=== PATIENT | female | born 1945 | race Two or more races ===

== ENCOUNTER 2016-08-18 17:19 | Emergency (ER) | payer OTHER ==
[~2016-08-18] VITALS: Ht 165.1 cm; Wt 125.2 kg
[2016-08-18 19:19] VITALS: BP 178/127
--- NOTE | 2016-08-18 20:56 | NUR ---
TO ER BED 5
--- NOTE | 2016-08-18 21:00 | NUR ---
PATIENT PRESENTS TO ED WITH RT TOE NAIL OFF . PT DENIES N/V/D; SKIN IS PINK/WARM/DRY; AAOX4 WITH EVEN AND STEADY GAIT; LUNGS CLEAR BL; HR EVEN AND REGULAR; PT DENIES ANY FEVER, CP, SOB, OR COUGH AT THIS TIME; PATIENT STATES PAIN OF 0/10 AT THIS TIME; VSS; PATIENT POSITIONED FOR COMFORT; HOB ELEVATED; BEDRAILS UP X2; BED DOWN. ER MD MADE AWARE OF PT STATUS.
[2016-08-18] MEDS ORDERED: CLINDAMYCIN 150 MG CAP PO ONE (21:10)
--- NOTE | 2016-08-18 21:30 | NUR ---
X-Ray at bedside.
[2016-08-18] MEDS ORDERED: BACITRACIN OINT 500 UNITS/GM PKT TP ONE (22:05)
[2016-08-18] MEDS ORDERED: NEOMYCIN/POLYMYXIN/BACITRACIN 0.9 GM/1 PKT TP ONE (22:15)
--- NOTE | 2016-08-18 22:15 | NUR ---
WOUND CARE PROVIDED BY EMT, TOE WRAPPED AND FOOT CARE DONE. PT TOLERATED WELL.
[2016-08-18 22:48] VITALS: BP 158/71
--- NOTE | 2016-08-18 22:48 | NUR ---
Patient discharged with v/s stable. Written and verbal after care instructions given and explained. Patient alert, oriented and verbalized understanding of instructions. Ambulatory with steady gait. All questions addressed prior to discharge. ID band removed. Patient advised to follow up with PMD. Rx of CIPRO AND MOTRIN given. Patient educated on indication of medication including possible reaction and side effects. Opportunity to ask questions provided and answered.
== END 2016-08-18 22:48 | disposition home or self-care (01) ==
LOC: MED 17:19
DX: S99.821A Other specified injuries of right foot, initial encounter (principal); E11.9 Type 2 diabetes mellitus without complications; W55.03XA Scratched by cat, initial encounter; Y93.89 Activity, other specified; Y92.89 Other specified places as the place of occurrence of the external cause; Y99.8 Other external cause status
CPT/HCPCS: 73660; 99284; Q0092

== ENCOUNTER 2016-08-30 10:07 | Emergency (ER) | payer OTHER ==
[~2016-08-30] VITALS: Ht 165.1 cm; Wt 127.0 kg
[2016-08-30 10:19] VITALS: BP 152/110
--- NOTE | 2016-08-30 10:23 | NUR ---
Patient ambulated to bed 08.
--- NOTE | 2016-08-30 10:25 | NUR ---
PT PRESENTS TO ER W/C/O RIGHT GREAT TOE PAIN. PT STATES SHE BUMPED HER TOE AND THE TOENAIL PARTIALLY RIPPED OFF. HX DM; DENIES N/V/D; SKIN IS PINK/WARM/DRY; AAOX4 WITH EVEN AND STEADY GAIT; LUNGS CLEAR BL; HR EVEN AND REGULAR; PT DENIES ANY FEVER, CP, SOB, OR COUGH AT THIS TIME; PATIENT STATES RIGHT TOE THROBBING PAIN OF 3/10 AT THIS TIME; VSS; PATIENT POSITIONED FOR COMFORT; HOB ELEVATED; BEDRAILS UP X2; BED DOWN. ER MD MADE AWARE OF PT STATUS.
[2016-08-30] MEDS ORDERED: LIDOCAINE 1% ED 0 ML ONE (12:13)
[2016-08-30] MEDS ORDERED: NEOMYCIN/POLYMYXIN/BACITRACIN 0.9 GM/1 PKT TP ONE (12:22)
[2016-08-30] MEDS ORDERED: LIDOCAINE/EPI 1% 1:100000 20 ML VIAL INJ ONE (12:24)
--- NOTE | 2016-08-30 12:27 | NUR ---
DR TAPIA AT BEDSIDE
[2016-08-30 13:07] VITALS: BP 144/99
--- NOTE | 2016-08-30 13:07 | NUR ---
Patient discharged with v/s stable. Written and verbal after care instructions given and explained. Patient verbalized understanding. Ambulatory with steady gait. All questions addressed prior to discharge. Advised to follow up with PMD.
== END 2016-08-30 13:07 | disposition home or self-care (01) ==
LOC: MED 10:07
DX: S91.201A Unspecified open wound of right great toe with damage to nail, initial encounter (principal); E11.9 Type 2 diabetes mellitus without complications; I10 Essential (primary) hypertension; E78.5 Hyperlipidemia, unspecified; X58.XXXA Exposure to other specified factors, initial encounter; Y93.89 Activity, other specified; Y92.89 Other specified places as the place of occurrence of the external cause; Y99.8 Other external cause status
CPT/HCPCS: 11730; 82948; 99284; J2001

== ENCOUNTER 2019-06-14 15:54 | Emergency (ER) | payer OTHER ==
[~2019-06-14] VITALS: Ht 165.1 cm; Wt 117.9 kg
[2019-06-14 16:15] VITALS: BP 105/50
[2019-06-14] MEDS ORDERED: AMOXIL/CLAVULANATE 875/125 MG 1 TAB PO ONE (16:20)
--- NOTE | 2019-06-14 16:30 | NUR ---
73/F FROM EMS FOR CAT SCRACTHES TO RT FOREARM. BLEEDING CONTROLLED. PT IS UNAWARE OF LAS TDAP. MULTIPLE SCRATCHES NOTED TO RT FOREARM. IN BED FOR MSE.
[2019-06-14] MEDS ORDERED: AZITHROMYCIN 250 MG TAB PO ONE (16:50)
--- NOTE | 2019-06-14 17:00 | NUR ---
DERMABOND AND STERISTRIPS APPLIED TO RT FORARM BY DR LIMON. PT TOLERATED WELL.
[2019-06-14] MEDS ORDERED: BACITRACIN OINT 500 UNITS/GM PKT TP ONE (17:06)
[2019-06-14 17:27] VITALS: BP 105/50
== END 2019-06-14 17:27 | disposition home or self-care (01) ==
LOC: MED 15:54
DX: S61.412A Laceration without foreign body of left hand, initial encounter (principal); S61.411A Laceration without foreign body of right hand, initial encounter; E11.9 Type 2 diabetes mellitus without complications; W55.01XA Bitten by cat, initial encounter; Y93.89 Activity, other specified; Y92.89 Other specified places as the place of occurrence of the external cause; Y99.8 Other external cause status
CPT/HCPCS: 90471; 90715; 99283

== ENCOUNTER 2021-07-11 16:35 | Inpatient (IN) | payer MEDICARE, MEDICAID ==
[~2021-07-11] VITALS: Ht 167.6 cm; Wt 31.8 kg
--- NOTE | 2021-07-11 16:38 | NUR ---
BIBA BLS TO ER BED 5
--- NOTE | 2021-07-11 17:05 | NUR ---
BLOOD SENT TO LAB, NAGA SINCLAIR SENT TO LAB
[2021-07-11 17:06] VITALS: BP 110/66
[2021-07-11 17:10] LABS: BASOPHILS # (AUTO) 0.1 K/uL (0.00-0.22); BASOPHILS % (AUTO) 0.8 % (0.0-2.0); EOSINOPHILS # (AUTO) 0.1 K/uL (0-0.4); EOSINOPHILS % (AUTO) 0.7 % (0.0-4.0); HEMATOCRIT 36.8 % (36-48); HEMOGLOBIN 12.1 g/dL (12.0-16.0); LYMPHOCYTES % (AUTO) 33.5 % (20.5-51.1); MEAN CORPUSCULAR HEMOGLOBIN 27 pg (27-31); MEAN CORPUSCULAR HGB CONC 33 g/dL (33-37); MEAN CORPUSCULAR VOLUME 81.8 fL (80-94); MONOCYTES # (AUTO) 0.5 K/uL (0.8-1.0); MONOCYTES % (AUTO) 5.9 % (1.7-9.3); NEUTROPHILS # (AUTO) 5.3 K/uL (1.8-7.7); NEUTROPHILS % (AUTO) 59.1 % (42.2-75.2); PLATELET COUNT (AUTO) 407 K/uL (140-450); RED CELL DISTRIBUTION WIDTH 16.5 % (11.6-13.7)
--- NOTE | 2021-07-11 17:12 | NUR ---
XR AT PT BEDSIDE
--- NOTE | 2021-07-11 17:15 | NUR ---
75 Y/O FEMALE BIBA C/O VOMITING FOR APPROX 1 YR. PT STATES SHE VOMITED APPROX. 6 TIMES TODAY. PT DENIES PAIN. PT DENIES AGGRAVATING OR ALLEVIATING FACTORS. ABDOMEN IN NON TENDER TO TOUCH. DENIES DYSURIA, DIARRHEA, CONSTIPATION, NO FEVER OR CHILLS. PT DENIES TAKING MEDICATION PRIOR TO ARRIVAL. BED LOCKED IN LOWEST POSITION. SIDE RAILS X1. PMH: AFIB, DM,HDL, HTN, NSTEMI, UTI NKA
[2021-07-11] MEDS ORDERED: ONDANSETRON 4 MG/2 ML VIAL IVP ONE (17:40)
[2021-07-11] MEDS ORDERED: NACL 0.9% 1,000 ML IV ONE (17:40)
[2021-07-11 17:44] LABS: ALBUMIN 3.6 g/dL (3.4-5.0); ANION GAP 14.4 (8-16); ASPARTATE AMINOTRANSFERASE 15 U/L (15-37); CARBON DIOXIDE 33.8 mmol/L (21-32); CHLORIDE 98 mmol/L (98-107); CREATININE 2.5 mg/dL (0.6-1.3); GLUCOSE 149 mg/dL (74-106); POTASSIUM 4.2 mmol/L (3.5-5.1); SODIUM SERUM 142 mmol/L (136-145); TOTAL BILIRUBIN 0.5 mg/dL (0.0-1.0); UREA NITROGEN, BLOOD 40 mg/dL (7-18)
--- NOTE | 2021-07-11 18:12 | NUR ---
PT TAKEN TO CT VIA MAE
[2021-07-11 19:02] LABS: BILIRUBIN,URINE NEGATIVE (NEGATIVE); BLOOD, URINE TRACE-L (NEGATIVE); COLOR,URINE YELLOW (YELLOW); LEUKOCYTE ESTERASE ,URINE NEGATIVE (NEGATIVE); NITRITE, URINE NEGATIVE (NEGATIVE); PH,URINE 8.5 (5.0-9.0); UGLUCOSE NEGATIVE (NEGATIVE)
--- NOTE | 2021-07-11 19:02 | NUR ---
Patient appears to be resting comfortably in bed. Vital Signs within normal limits. Respirations even and unlabored.
[2021-07-11 19:04] LABS: APPEARANCE,URINE CLEAR (CLEAR)
[2021-07-11 19:20] LABS: WBC,URINE 20-60 /HPF (0-5)
--- NOTE | 2021-07-11 19:23 | NUR ---
Pt report given to EARL ZAVALA. Transfer of care at this time.
[2021-07-11] MEDS ORDERED: ONDANSETRON 4 MG/2 ML VIAL IVP PRN (19:40)
--- NOTE | 2021-07-11 19:43 | NUR ---
PT STATED SHE WAS THIRSTY. GAVE PT ICE CHIPS TO TEST FIRST. IF NO VOMITING WILL TRY WATER. PT AGREED TO PLAN, DR. LEE NOTIFIED
[2021-07-11] MEDS ORDERED: [UNRECOGNIZED DRUG - CODE] PO (20:29)
[2021-07-11] MEDS ORDERED: ZOF (20:29)
[2021-07-11] MEDS ORDERED: HYDR-3233 PO (20:29)
[2021-07-11] MEDS ORDERED: ATOR40TA PO (20:29)
[2021-07-11] MEDS ORDERED: BISA-213 RC (20:29)
[2021-07-11] MEDS ORDERED: MULT-2246 PO (20:29)
[2021-07-11] MEDS ORDERED: INSU100S22 SUBQ (20:29)
[2021-07-11] MEDS ORDERED: METO25TE2 PO (20:29)
[2021-07-11] MEDS ORDERED: ZOFRAN PO (20:29)
[2021-07-11] MEDS ORDERED: LISI40TA12 PO (20:29)
[2021-07-11] MEDS ORDERED: ASPI-1822 PO (20:29)
[2021-07-11] MEDS ORDERED: MAGN400S60 PO (20:29)
[2021-07-11] MEDS ORDERED: FLEPED RC (20:29)
[2021-07-11] MEDS ORDERED: MECL-231 PO (20:29)
--- NOTE | 2021-07-11 20:42 | NUR ---
Patient will be admitted to care of . Admited to TELE. Will go to room. Belongings list completed. Report to
[2021-07-11 20:58] VITALS: BP 135/71
--- NOTE | 2021-07-11 21:05 | NUR ---
This is an admission note for a 75 year old female patient under the care of Doctor Reynaldo. Pola complaint of intractable vomiting hours after breakfast when patient takes a sip of water to begin lunch. Patient says her entire breakfast comes back up and she would like to know why. Given as needed items (vomit bag). Patient request for food at this time. Manolo Preciado RN
[2021-07-11] MEDS ORDERED: MORPHINE SULFATE 2 MG/ML SYR IVP PRN (23:50)
[2021-07-11] MEDS ORDERED: HYDROcodone/APAP 5/325 MG 1 TAB TAB PO PRN (23:50)
[2021-07-11] MEDS ORDERED: DOCUSATE SODIUM 100 MG GELCAP PO PRN (23:50)
[2021-07-11] MEDS ORDERED: MAG SULF 2000 MG/WATER PREMIX 50 ML IV PRN (23:50)
[2021-07-11] MEDS ORDERED: ACETAMINOPHEN 325 MG TAB PO PRN (23:50)
[2021-07-11] MEDS ORDERED: ONDANSETRON 4 MG/2 ML VIAL IM/IVP PRN (23:50)
[2021-07-11] MEDS ORDERED: POTASSIUM CHLORIDE 10 MEQ TABER PO PRN (23:50)
[2021-07-11] MEDS ORDERED: LORazepam 2 MG/ML VIAL IM/IVP PRN (23:50)
[2021-07-11] MEDS ORDERED: ZOLPIDEM 5 MG TAB PO PRN (23:50)
[2021-07-11] MEDS ORDERED: GINGER ROOT 500 MG PO SCH (23:55)
[2021-07-11] MEDS ORDERED: MAGNESIUM HYDROXIDE 2400 MG/30 ML UDC PO PRN (23:55)
[2021-07-11] MEDS ORDERED: hydrALAZINE 10 MG TAB PO SCH (23:55)
[2021-07-11] MEDS ORDERED: MECLIZINE 25 MG TAB PO PRN (23:55)
[2021-07-11] MEDS ORDERED: SODIUM PHOSPHATE PEDIATRIC 67.5 ML ENEM RC SCH (23:55)
[2021-07-11] MEDS ORDERED: bisacodyL 10 MG SUPP RC PRN (23:55)
[2021-07-12] MEDS ORDERED: DEXTROSE 50% 50 ML SYR IVP PRN
[2021-07-12] MEDS ORDERED: INSULIN LISPRO SLIDING SCALE 100 UNITS/ML VIAL SUBQ PRN
[2021-07-12 00:49] LABS: PROTHROMBIN TIME 11.3 secs (10.8-13.4)
[2021-07-12 01:00] VITALS: BP 132/63
[2021-07-12 04:00] VITALS: BP 115/65
[2021-07-12] MEDS: NACL 0.9% 1,000 ML IV SCH ×2 (05:22→16:27)
[2021-07-12] MEDS: BLOOD GLUCOSE MONITORING 1 DEV DEV FS SCH ×4 (06:38→21:24)
[2021-07-12 06:48] LABS: THYROID STIMULATING HORMONE 0.03 uIU/mL (0.34-3.74)
--- NOTE | 2021-07-12 06:59 | NUR ---
Handoff with MELVIN Howell. Manolo Preciado RN
--- NOTE | 2021-07-12 07:30 | NUR ---
RECEIVED REPORTFROM SEAMAN. AOX4, ABLE TO MAKE NEEDS KNOWN. RESPIRATIONS EVEN AND UNLABORED. ON ROOM AIR AND NO DISTRESS NOTED. SKIN IS WARM, DRY, AND INTACT. IV SITE ON RAC 20G RUNNING NS AT 60. INTACT AND PATENT. ABD IS SOFT, FLAT, AND NON-DISTENDED. BOWEL SOUNDS ACTIVE IN ALL QUADRANTS. PT DENIES PAIN AT THE MOMENT. PT AMBULATES WITH ASSISTANCE. PLAN OF CARE DISCUSSED. SAFETY PRECAUTIONS IN PLACE. CALL LIGHT WITHIN REACH. WILL CONTINUE TO MONITOR.
[2021-07-12 08:00] VITALS: BP 145/68
[2021-07-12 08:13] LABS: BASOPHILS # (AUTO) 0.1 K/uL (0.00-0.22); BASOPHILS % (AUTO) 1.5 % (0.0-2.0); EOSINOPHILS # (AUTO) 0.3 K/uL (0-0.4); EOSINOPHILS % (AUTO) 3.5 % (0.0-4.0); HEMATOCRIT 30.8 % (36-48); HEMOGLOBIN 10.2 g/dL (12.0-16.0); LYMPHOCYTES # (AUTO) 3.6 K/uL (2.5-16.5); LYMPHOCYTES % (AUTO) 43.1 % (20.5-51.1); MEAN CORPUSCULAR HEMOGLOBIN 28 pg (27-31); MEAN CORPUSCULAR HGB CONC 33 g/dL (33-37); MEAN CORPUSCULAR VOLUME 83.7 fL (80-94); MONOCYTES # (AUTO) 0.6 K/uL (0.8-1.0); MONOCYTES % (AUTO) 6.9 % (1.7-9.3); NEUTROPHILS # (AUTO) 3.7 K/uL (1.8-7.7); PLATELET COUNT (AUTO) 307 K/uL (140-450); RED BLOOD CELL COUNT(AUTO) 3.68 MIL/uL (4.20-5.40); RED CELL DISTRIBUTION WIDTH 16.3 % (11.6-13.7); WHITE BLOOD COUNT (AUTO) 8.3 K/uL (4.8-10.8)
[2021-07-12 08:15] LABS: ANION GAP 8.7 (8-16); CARBON DIOXIDE 34.4 mmol/L (21-32); CHLORIDE 103 mmol/L (98-107); CREATININE 2.1 mg/dL (0.6-1.3); GLUCOSE 154 mg/dL (74-106); POTASSIUM 4.1 mmol/L (3.5-5.1); SODIUM SERUM 142 mmol/L (136-145); UREA NITROGEN, BLOOD 37 mg/dL (7-18)
--- NOTE | 2021-07-12 08:24 | NUR ---
PATIENT HAS BEEN SCREENED AND CATEGORIZED HIGH NUTRITION RISK. PATIENT WILL BE SEEN WITHIN 1-2 DAYS OF ADMISSION. REFERRAL RECEIVED FOR NAUSEA AND VOMITING OVER THREE DAYS [address]
[2021-07-12] MEDS ORDERED: hydrALAZINE 10 MG TAB PO PRN (08:45)
[2021-07-12] MEDS: ASPIRIN 81 MG TAB.CHEW PO SCH (08:52)
[2021-07-12] MEDS: MULTIVITAMIN/MINERALS 1 TAB PO SCH (08:52)
[2021-07-12] MEDS: METOPROLOL SUCCINATE 50 MG TABER PO SCH (08:52)
[2021-07-12] MEDS: lisinopriL 20 MG TAB PO SCH (08:53)
[2021-07-12 09:05] LABS: CHOL/HDL RATIO 2.7 (1-4.5); MAGNESIUM 2.2 mg/dL (1.8-2.4); PHOSPHORUS 5.3 mg/dL (2.5-4.9)
[2021-07-12 12:00] VITALS: BP 132/68
[2021-07-12] MEDS: ERYTHROMYCIN 250 MG in NACL 0.9% 100 ML IV SCH ×2 (12:31→18:28)
[2021-07-12 16:00] VITALS: BP 138/59
--- NOTE | 2021-07-12 16:13 | NUR ---
07/12/21 RD INITIAL ASSESSMENT COMPLETED PLEASE REFER TO NUTRITION ASSESSMENT UNDER CARE ACTIVITY FOR ESTIMATED NUTRITIONAL NEEDS. 1. RECOMMEND CCHO 60 GM + CARDIAC DIET 2. MONITOR PO INTAKE AND GI SYMPTOMS. -IF PT PO INTAKE CONTINUES TO BE < 75 %, RECOMMEND ORAL SUPPLEMENTS PER RD PROTOCOL 3. RD TO FOLLOW-UP 2-3 DAYS, HIGH RISK REVIEWED BY PABLO GRE[address]
[2021-07-12 20:00] VITALS: BP 109/70
[2021-07-12] MEDS ORDERED: INSULIN LANTUS 100 UNITS/ML 10 ML VIAL SUBQ SCH (21:00)
[2021-07-12] MEDS ORDERED: ATORVASTATIN 20 MG TAB PO SCH (21:00)
[2021-07-12] MEDS: PANTOPRAZOLE 40 MG INJ VIAL IVP SCH (21:26)
[2021-07-13] VITALS: BP 126/54
[2021-07-13] MEDS: ERYTHROMYCIN 250 MG in NACL 0.9% 100 ML IV SCH ×3 (00:07→12:00)
[2021-07-13] MEDS: DEXT 5% / NACL 0.9% 1,000 ML IV SCH ×2 (01:00→09:06)
[2021-07-13 04:00] VITALS: BP 154/70
[2021-07-13] MEDS: BLOOD GLUCOSE MONITORING 1 DEV DEV FS SCH ×2 (06:37→10:48)
[2021-07-13] MEDS ORDERED: MIDAZOLAM 2 MG/2 ML VIAL ONE (07:14)
[2021-07-13] MEDS ORDERED: fentaNYL citrate 0.05 MG/ML VIAL ONE (07:14)
--- NOTE | 2021-07-13 07:27 | NUR ---
RECEIVED REPORT FROM [facility]. PT A/O X4. NO SOB OR RESPIRATORY DISTRESS. ON RA. DENIES PAIN. DENIES VOMITING THIS AM. LAC #20 WITH D5NS @ 110 ML/HR. CONSENT FOR EGD WILL BE SIGNED BY PREOP RN. PT OFF TO EGD. NEEDS ALL MET AT THIS TIME. SAFETY MEASURES IN PLACE. WILL CONTINUE TO MONITOR CLOSELY.
[2021-07-13] MEDS ORDERED: fentaNYL citrate 0.05 MG/ML VIAL IVP ONE (07:55)
[2021-07-13] MEDS ORDERED: MIDAZOLAM 2 MG/2 ML VIAL IVP ONE (07:55)
[2021-07-13 08:00] VITALS: BP 123/70
--- NOTE | 2021-07-13 08:05 | NUR ---
PT BACK FROM EGD. Addendum: 07/13/21 at 0806 by Agency Nurse Bruce, MELVIN CHARLES PT BACK FROM EGD. REPORT GIVEN BY MELVIN BTAISTA. PT IN NO DISTRESS. NO SOB. ON RA. WILL MONITOR CLOSELY.
[2021-07-13 08:14] LABS: PHOSPHORUS 4.3 mg/dL (2.5-4.9)
[2021-07-13 09:00] LABS: ANION GAP 12.3 (8-16); CARBON DIOXIDE 24.8 mmol/L (21-32); CHLORIDE 107 mmol/L (98-107); CREATININE 1.7 mg/dL (0.6-1.3); GLUCOSE 75 mg/dL (74-106); POTASSIUM 4.1 mmol/L (3.5-5.1); SODIUM SERUM 140 mmol/L (136-145); UREA NITROGEN, BLOOD 34 mg/dL (7-18)
[2021-07-13] MEDS: PANTOPRAZOLE 40 MG INJ VIAL IVP SCH (09:03)
[2021-07-13] MEDS: METOPROLOL SUCCINATE 50 MG TABER PO SCH (09:04)
[2021-07-13] MEDS: ASPIRIN 81 MG TAB.CHEW PO SCH (09:04)
[2021-07-13] MEDS: lisinopriL 20 MG TAB PO SCH (09:05)
[2021-07-13] MEDS: MULTIVITAMIN/MINERALS 1 TAB PO SCH (09:05)
[2021-07-13 09:08] LABS: BASOPHILS # (AUTO) 0.1 K/uL (0.00-0.22); EOSINOPHILS # (AUTO) 0.4 K/uL (0-0.4); EOSINOPHILS % (AUTO) 4.8 % (0.0-4.0); HEMATOCRIT 32.1 % (36-48); HEMOGLOBIN 10.2 g/dL (12.0-16.0); LYMPHOCYTES # (AUTO) 3.5 K/uL (2.5-16.5); LYMPHOCYTES % (AUTO) 39.9 % (20.5-51.1); MEAN CORPUSCULAR HEMOGLOBIN 27 pg (27-31); MEAN CORPUSCULAR HGB CONC 32 g/dL (33-37); MONOCYTES # (AUTO) 0.7 K/uL (0.8-1.0); MONOCYTES % (AUTO) 7.7 % (1.7-9.3); NEUTROPHILS # (AUTO) 4.1 K/uL (1.8-7.7); NEUTROPHILS % (AUTO) 46.6 % (42.2-75.2); PLATELET COUNT (AUTO) 278 K/uL (140-450); RED BLOOD CELL COUNT(AUTO) 3.78 MIL/uL (4.20-5.40); RED CELL DISTRIBUTION WIDTH 15.8 % (11.6-13.7); WHITE BLOOD COUNT (AUTO) 8.7 K/uL (4.8-10.8)
--- NOTE | 2021-07-13 10:49 | NUR ---
PT WITH BLOOD GLUCOSE VIA FINGERSTICK WITH 65. ORANGE JUICE AND VANILLA PUDDING PROVIDED FOR PT. PT A/O X3. NO S/S OF HYPOGLYCEMIA. PT STATES SHE DOES NOT GET ALONG WITH PT IN BED 112A AND STATES, "SHE WANTS ME OUT OF HERE". CONTACTED CHARGE NURSE REGARDING ROOM CHANGE. NEEDS ALL MET AT THIS TIME. SAFETY PRECAUTIONS IN PLACE. WILL MONITOR CLOSELY.
[2021-07-13] MEDS ORDERED: BISM262S40 PO (11:37)
[2021-07-13] MEDS ORDERED: OMEP40EC23 PO (11:37)
[2021-07-13 12:00] VITALS: BP 115/60
--- NOTE | 2021-07-13 12:00 | NUR ---
PT STATES SHE DOES NOT WANT ROOM CHANGE ANYMORE. CONTACTED CHARGE NURSE.
--- NOTE | 2021-07-13 13:00 | NUR ---
PT TOLERATING FLUIDS AND FOOD INTAKE. DENIES NAUSEA/VOMITING. PT IN NO DISTRESS. VSS. NEEDS ALL MET AT THIS TIME. SAFETY MEASURES IN PLACE. HOURLY ROUNDS CONDUCTED.
--- NOTE | 2021-07-13 13:24 | NUR ---
DC PLANNING: PATIENT ACCEPTED BACK TO [facility], ROOM 19A, DR KEYS TO FOLLOW. NUMBER TO CALL REPORT IS [phone]. TRANSPORT TO BE PROVIDED BY [employer], , ETA 1500. BOO SPOKE WITH THE PATIENT AT BEDSIDE, SHE HAS BEEN AT [facility] FOR 10 MONTHS. SHE DOES AMBULATE WITH P.T. USING A FWW AND THE REST OF THE TIMES WHEELS HERSELF AROUND IN A WC. SHE IS INDEPENDENT IN ADL'S AND WANTS TO RETURN TO THE SNF. STATES THAT HER NIECE MELINDA SALDANA IS HER PRIMARY CONTACT BUT SHE LIVES IN [facility] AND THE PATIENT CAN'T REMEMBER HER NUMBER. SECONDARY CONTACT IS HER FRIEND SLIME, PHONE NUMBER [phone]. ETA ENDORSED TO THE CHARGE NURSE BOO BAXTER WILL FOLLOW.
[2021-07-13 14:17] VITALS: BP 115/60
--- NOTE | 2021-07-13 15:14 | NUR ---
DISCHARGE INSTRUCTIONS GIVEN. PT VERBALIZED UNDERSTANDING. PT IV DISCONTINUED. CATHETER INTACT. NO ACTIVE BLEEDING. REPORT GIVEN TO EMT. PT TRANSPORTED VIA GURNEY BACK TO [facility].
[2021-07-13 18:21] LABS: T4 (THYROXINE) 12.4 ug/dL (4.5 - 12.0)
== END 2021-07-13 15:20 | DRG 380 ==
LOC: MED 16:35 → MTU 19:47
PROC: 0DB78ZX Excision of Stomach, Pylorus, Via Natural or Artificial Opening Endoscopic, Diagnostic (ICD-10-PCS; 2021-07-13)
PROC: 0DB58ZX Excision of Esophagus, Via Natural or Artificial Opening Endoscopic, Diagnostic (ICD-10-PCS; 2021-07-13)
PROC: 0DB98ZX Excision of Duodenum, Via Natural or Artificial Opening Endoscopic, Diagnostic (ICD-10-PCS; principal; 2021-07-13 07:30)
DX: K22.70 Barrett's esophagus without dysplasia (principal); N17.0 Acute kidney failure with tubular necrosis; N13.6 Pyonephrosis; K92.9 Disease of digestive system, unspecified; K80.20 Calculus of gallbladder without cholecystitis without obstruction; E11.43 Type 2 diabetes mellitus with diabetic autonomic (poly)neuropathy; K29.60 Other gastritis without bleeding; K20.90 Esophagitis, unspecified without bleeding; E11.65 Type 2 diabetes mellitus with hyperglycemia; I10 Essential (primary) hypertension; I48.91 Unspecified atrial fibrillation; D64.9 Anemia, unspecified; Z20.822 Contact with and (suspected) exposure to COVID-19; I25.10 Atherosclerotic heart disease of native coronary artery without angina pectoris; E83.39 Other disorders of phosphorus metabolism; K31.84 Gastroparesis; D17.9 Benign lipomatous neoplasm, unspecified; E11.21 Type 2 diabetes mellitus with diabetic nephropathy; Z90.710 Acquired absence of both cervix and uterus; Z91.013 Allergy to seafood; Z91.018 Allergy to other foods; Z91.09 Other allergy status, other than to drugs and biological substances; Z79.899 Other long term (current) drug therapy
CPT/HCPCS: 36415; 70450; 71045; 80048; 80053; 81001; 82948; 83036; 83690; 83735; 83880; 84100; 84134; 84436; 84443; 85025; 85610; 85730; 87081; 87086; 93005; 96374; 99285; C1758; C9113; J1364; J1815; J2250; J2405; J3010; J7030; Q0092